=== PATIENT | female | born 1990 | race African-American/Black ===

== ENCOUNTER 2017-07-31 09:29 | Outpatient (CLI) | payer OTHER ==
[2017-07-31 09:48] LABS: BASOPHILS # (AUTO) 0.1 K/uL (0.0-0.2); BASOPHILS % (AUTO) 1.1 % (0.0-2.0); EOSINOPHILS # (AUTO) 0.2 K/uL (0.0-0.4); EOSINOPHILS % (AUTO) 4.7 % (0.0-4.0); HEMATOCRIT 39.6 % (36-48); HEMOGLOBIN 13.1 g/dL (12.0-16.0); LYMPHOCYTES # (AUTO) 1.9 K/uL (1.0-5.5); LYMPHOCYTES % (AUTO) 37.7 % (20.5-51.5); MEAN CORPUSCULAR HEMOGLOBIN 31 pg (27-31); MEAN CORPUSCULAR HGB CONC 33 % (32-36); MEAN CORPUSCULAR VOLUME 92 fL (79.0-98.0); MONOCYTES # (AUTO) 0.4 K/uL (0.0-1.0); MONOCYTES % (AUTO) 8.2 % (1.7-9.3); NEUTROPHILS # (AUTO) 2.4 K/uL (1.8-7.7); NEUTROPHILS % (AUTO) 48.3 % (40.0-70.0); PLATELET COUNT (AUTO) 195 K/uL (130-430); RED BLOOD CELL COUNT(AUTO) 4.28 MIL/uL (4.2-6.2); RED CELL DISTRIBUTION WIDTH 11.8 % (9.0-15.0)
[2017-07-31 10:08] LABS: ALBUMIN 4.6 g/dL (3.4-4.8); CREATININE 0.87 mg/dL (0.55-1.30); POTASSIUM 3.8 mmol/L (3.5-5.1); TOTAL BILIRUBIN 0.6 mg/dL (0.0-1.0)
== END 2017-07-31 18:35 | disposition home or self-care (01) ==
LOC: SLB 09:29
PROVIDERS: ATTEND Family Medicine
DX: Z00.01 Encounter for general adult medical examination with abnormal findings (principal); R79.89 Other specified abnormal findings of blood chemistry
CPT/HCPCS: 36415; 80053; 82746; 85025

== ENCOUNTER 2017-10-07 13:12 | Outpatient (CLI) | payer OTHER ==
[2017-10-07 13:49] LABS: BASOPHILS % (AUTO) 0.8 % (0.0-2.0); EOSINOPHILS # (AUTO) 0.2 K/uL (0.0-0.4); EOSINOPHILS % (AUTO) 3.1 % (0.0-4.0); HEMATOCRIT 37.7 % (36-48); HEMOGLOBIN 12.7 g/dL (12.0-16.0); LYMPHOCYTES # (AUTO) 2.4 K/uL (1.0-5.5); LYMPHOCYTES % (AUTO) 44.6 % (20.5-51.5); MEAN CORPUSCULAR HEMOGLOBIN 32 pg (27-31); MEAN CORPUSCULAR HGB CONC 34 % (32-36); MEAN CORPUSCULAR VOLUME 94 fL (79.0-98.0); MONOCYTES # (AUTO) 0.3 K/uL (0.0-1.0); MONOCYTES % (AUTO) 5.9 % (1.7-9.3); NEUTROPHILS # (AUTO) 2.4 K/uL (1.8-7.7); NEUTROPHILS % (AUTO) 45.6 % (40.0-70.0); PLATELET COUNT (AUTO) 222 K/uL (130-430); RED BLOOD CELL COUNT(AUTO) 4.01 MIL/uL (4.2-6.2); WHITE BLOOD COUNT (AUTO) 5.3 K/uL (4.8-10.8)
[2017-10-08 08:12] LABS: RA LATEX TURBID <10.0 IU/mL (0.0-13.9); THYROID PEROXIDASE (TPO) AB 8 IU/mL (0-34)
[2017-10-08 20:14] LABS: ANTI-DNA(DS) AB, QN 1 IU/mL (0-9); ANTI-NUCLEAR AB DIRECT Negative (Negative); SMITH ABS <0.2 AI (0.0-0.9)
[2017-10-09 04:08] LABS: COMPLEMENT C4, SERUM 18 mg/dL (14-44)
[2017-10-09 12:13] LABS: ANTI-MITOCHONDRIAL AB 16.8 Units (0.0-20.0); ANTI-PARIETAL CELL AB 2.9 Units (0.0-20.0); ANTI-SMOOTH MUSCLE AB 10 Units (0-19)
== END 2017-10-07 17:48 | disposition home or self-care (01) ==
LOC: SLB 13:12
PROVIDERS: ATTEND Family Medicine
DX: M25.50 Pain in unspecified joint (principal)
CPT/HCPCS: 36415; 84550-TC; 85025; 86431

== ENCOUNTER 2017-10-10 11:20 | Outpatient (CLI) | payer OTHER | END 2017-10-15 15:48 | disposition home or self-care (01) | LOC: SRD 11:20 | PROVIDERS: ATTEND Family Medicine | DX: M25.551 Pain in right hip (principal); M25.552 Pain in left hip; M41.86 Other forms of scoliosis, lumbar region | CPT/HCPCS: 72110; 73521 ==

== ENCOUNTER 2017-12-24 07:34 | Outpatient (CLI) | payer OTHER ==
[2017-12-24 08:22] LABS: BASOPHILS # (AUTO) 0.1 K/uL (0.0-0.2); BASOPHILS % (AUTO) 1.1 % (0.0-2.0); EOSINOPHILS # (AUTO) 0.3 K/uL (0.0-0.4); EOSINOPHILS % (AUTO) 5.4 % (0.0-4.0); HEMATOCRIT 40.3 % (36-48); HEMOGLOBIN 13.5 g/dL (12.0-16.0); LYMPHOCYTES % (AUTO) 42.1 % (20.5-51.5); MEAN CORPUSCULAR HEMOGLOBIN 31 pg (27-31); MEAN CORPUSCULAR HGB CONC 34 % (32-36); MEAN CORPUSCULAR VOLUME 93 fL (79.0-98.0); MONOCYTES # (AUTO) 0.3 K/uL (0.0-1.0); MONOCYTES % (AUTO) 7.1 % (1.7-9.3); NEUTROPHILS % (AUTO) 44.3 % (40.0-70.0); PLATELET COUNT (AUTO) 209 K/uL (130-430); RED BLOOD CELL COUNT(AUTO) 4.32 MIL/uL (4.2-6.2); WHITE BLOOD COUNT (AUTO) 4.7 K/uL (4.8-10.8)
[2017-12-24 08:51] LABS: ALANINE AMINOTRANSFERASE 85 U/L (12-78); ALBUMIN 4.4 g/dL (3.4-4.8); ANION GAP 8 (5-15); ASPARTATE AMINOTRANSFERASE 41 U/L (10-37); CALCIUM 9.3 mg/dL (8.4-11.0); CHLORIDE 101 mmol/L (98-107); CREATININE 0.99 mg/dL (0.55-1.30); GLUCOSE 93 mg/dL (70-99); POTASSIUM 3.7 mmol/L (3.5-5.1); SODIUM SERUM 135 mmol/L (136-145); TOTAL BILIRUBIN 0.6 mg/dL (0.0-1.0); UREA NITROGEN, BLOOD 12 mg/dL (8-21)
[2017-12-24 08:57] LABS: GFR AFRICAN AMERICAN 86 mL/min (>90)
[2017-12-24 09:07] LABS: ERYTHROCYTE SEDIMENTATION RATE 6 MM/HR (0-20)
[2017-12-24 09:20] LABS: C-REACTIVE PROTEIN QUANT < 0.2 mg/dL (0-0.5)
== END 2017-12-24 20:55 | disposition home or self-care (01) ==
LOC: SLB 07:34
DX: M79.1 Myalgia (principal); Z79.899 Other long term (current) drug therapy
CPT/HCPCS: 36415; 80053; 82085; 82306; 82550-TC; 82607; 83735-TC; 84443-TC; 85025; 85651-TC; 86140; 86200; 86431

== ENCOUNTER 2018-01-27 12:55 | Emergency (ER) | payer OTHER ==
[~2018-01-27] VITALS: Ht 177.8 cm; Wt 77.1 kg
[2018-01-27 13:00] VITALS: BP_SYST 139
[2018-01-27] MEDS ORDERED: MAG HYDROX/AL HYDROX/SIMETH 30 ML, LIDOCAINE VISCOUS 2% 15ML (PO) 10 ML, BELLADONNA ALK... PO ONE ×3 (13:30)
[2018-01-27 13:46] LABS: BASOPHILS # (AUTO) 0.1 K/uL (0.0-0.2); BASOPHILS % (AUTO) 1.2 % (0.0-2.0); EOSINOPHILS # (AUTO) 0.2 K/uL (0.0-0.4); EOSINOPHILS % (AUTO) 4.9 % (0.0-4.0); HEMATOCRIT 35.9 % (36-48); HEMOGLOBIN 12.5 g/dL (12.0-16.0); LYMPHOCYTES # (AUTO) 2.2 K/uL (1.0-5.5); LYMPHOCYTES % (AUTO) 43.6 % (20.5-51.5); MEAN CORPUSCULAR HEMOGLOBIN 33 pg (27-31); MEAN CORPUSCULAR HGB CONC 35 % (32-36); MEAN CORPUSCULAR VOLUME 94 fL (79.0-98.0); MONOCYTES # (AUTO) 0.3 K/uL (0.0-1.0); NEUTROPHILS # (AUTO) 2.2 K/uL (1.8-7.7); NEUTROPHILS % (AUTO) 43.3 % (40.0-70.0); PLATELET COUNT (AUTO) 193 K/uL (130-430); RED BLOOD CELL COUNT(AUTO) 3.82 MIL/uL (4.2-6.2)
[2018-01-27 13:57] LABS: CALCIUM 9.1 mg/dL (8.4-11.0); CREATININE 0.86 mg/dL (0.55-1.30); POTASSIUM 4.1 mmol/L (3.5-5.1)
[2018-01-27 14:22] LABS: BILIRUBIN,URINE NEGATIVE (NEGATIVE); BLOOD, URINE 1+ (NEGATIVE); CLARITY/URINE CLEAR (CLEAR); COLOR,URINE YELLOW (YELLOW); GLUCOSE,URINE NEGATIVE (NEGATIVE); KETONES,URINE NEGATIVE (NEGATIVE); LEUKOCYTE ESTERASE ,URINE NEGATIVE (NEGATIVE); NITRITE, URINE NEGATIVE (NEGATIVE); PROTEIN URINE NEGATIVE (NEGATIVE); UROBILINOGEN,URINE 0.2 (0.2-1.0)
[2018-01-27] MEDS ORDERED: PANTOPRAZOLE SODIUM 40 MG TAB PO ONE (14:30)
[2018-01-27 14:47] LABS: BACTERIA,URINE RARE /HPF (None Seen); MUCUS,URINE None Seen /LPF (None Seen); WBC,URINE 0-3 /HPF (0-3)
[2018-01-27 14:57] VITALS: BP_SYST 128
== END 2018-01-27 14:57 | disposition home or self-care (01) ==
LOC: SED 12:55
DX: K21.9 Gastro-esophageal reflux disease without esophagitis (principal); R07.89 Other chest pain; R03.0 Elevated blood-pressure reading, without diagnosis of hypertension
CPT/HCPCS: 36415; 71045; 80048; 81000; 81025; 84484; 85025; 93005; 99285; J2001